=== PATIENT | female | born 1970 | race Caucasian/White ===

== ENCOUNTER 2017-10-24 11:01 | Emergency (ER) | payer BC, OTHER ==
--- OUTSIDE RECORDS SUMMARY | 2017-10-24 11:03 | XMS REPORT ---
:1970 [facility] [address] [place] [address] Care Team Providers Name Role Phone UNKNOWN, REFFERING Primary Care Provider Unavailable ROSA HALEY Unavailable Unavailable Problems This patient has no known problems. Allergies, Adverse Reactions, Alerts This patient has no known allergies or adverse reactions. Medications This patient has no known medications. Results Test Description Test Time Test Comments Text Results Atomic Results Result Comments [id number] 2016-09-14 17:22:00 Test Item Value Reference Range Comments Amphetamine (test code=AMPH) Negative Negative For diagnostic purposes only, positive results should always be assessedin conjunctionwith the patient's medical history,clinical examination and otherfindings.To fulfill legal requirements, a more specific alternate chemical methodmust be used inorder to obtain a Confirmed analytical result. GC/MS is the preferred confirmatory method. Barbiturates (test code=CHUCK) Negative Negative Benzodiazepine (test code=ALEXANDRA) Negative Negative Cocaine (test code=COCA) Negative Negative Methadone (test code=MTHD) Negative Negative Opiates (test code=OPIA) Negative Negative PCP (test code=PCP) Negative Negative Propoxyphene (test code=PROPOX) Negative Negative THC (test code=THC) Negative Negative Basic Metabolic [id number] 08:32:00 Test Item Value Reference Range Comments Sodium (test code=NA) 144 mmol/L 135-145 Potassium (test code=K) 3.3 mmol/L 3.5-5.1 Chloride (test code=CL) 105 mmol/L 98-105 Carbon Dioxide (test 21 mmol/L 22-29 code=CO2) Glucose (test code=GLU) 107 mg/dL 70-115 Blood Urea Nitrogen 15 mg/dL 6-20 (test code=BUN) Creatinine (test 0.6 mg/dL 0.5-0.9 code=CREAT) Calcium (test code=CA) 9.2 mg/dL 8.3-10.5 BUN/Creatinine Ratio 25.0 (test code=BCRATIO) Anion Gap (test 18 mmol/L 7-16 code=AGAP) Estimated GFR (test >60 mL/min/1.73m2 eGFR (estimated Glomerular code=GFR) Filtration Rate) is an estimated value,calculated from the patient's serum creatinine using the MDRD equation.It is NOT the patient's actual GFR. The eGFR provides a more clinicallyuseful measure of kidney disease than serum creatinine alone.This calculation takes sex and race into account, if the informationis provided. If the race is not provided, and the patient isAfrican-[place], multiply by 1.212. If sex is not provided, and thepatient is female, multiply by 0.742. Results for patients <18 years ofage have not been validated by the MDRD study and should be interpretedwith caution.eGFR Result Interpretation:eGFR > or=60 is in the Normal RangeeGFR < 60 may mean kidney diseaseeGFR < 15 may mean kidney failureRanges recommended by the National Kidney Foundation,http://nkdep.nih .gov RPR, [id number] 07:59:00 Test Item Value Reference Range Comments RPR (test code=RPR) Non-Reactive Non-Reactive [id number] 23:26:00 Test Item Value Reference Range Comments NT ProBnp (test code=PBNP) 681 pg/mL 0-124 Comprehensive Metabolic [id number] 23:26:00 Test Item Value Reference Range Comments Sodium (test code=NA) 144 mmol/L 135-145 Potassium (test code=K) 3.6 mmol/L 3.5-5.1 Chloride (test code=CL) 107 mmol/L 98-105 Carbon Dioxide (test 19 mmol/L 22-29 code=CO2) Glucose (test code=GLU) 93 mg/dL 70-115 Blood Urea Nitrogen 17 mg/dL 6-20 (test code=BUN) Creatinine (test 0.9 mg/dL 0.5-0.9 code=CREAT) Calcium (test code=CA) 10.1 mg/dL 8.3-10.5 Prot Total (test 6.9 g/dL 6.4-8.3 code=TP) Albumin (test code=ALB) 4.4 g/dL 3.5-5.2 A/G Ratio (test 1.8 Ratio code=AGRATIO) Globulin (test 2.5 2.9-3.1 code=GLOB) Bili Total (test 0.4 mg/dL 0.1-0.9 code=TBIL) Alk Phos (test 65 U/L 35-104 code=APHOS) AST (test code=AST) 31 U/L 1-32 ALT (test code=ALT) 24 U/L 1-33 BUN/Creatinine Ratio 18.9 (test code=BCRATIO) Anion Gap (test 18 mmol/L 7-16 code=AGAP) Estimated GFR (test >60 mL/min/1.73m2 eGFR (estimated Glomerular code=GFR) Filtration Rate) is an estimated value,calculated from the patient's serum creatinine using the MDRD equation.It is NOT the patient's actual GFR. The eGFR provides a more clinicallyuseful measure of kidney disease than serum creatinine alone.This calculation takes sex and race into account, if the informationis provided. If the race is not provided, and the patient isAfrican-[place], multiply by 1.212. If sex is not provided, and thepatient is female, multiply by 0.742. Results for patients <18 years ofage have not been validated by the MDRD study and should be interpretedwith caution.eGFR Result Interpretation:eGFR > or=60 is in the Normal RangeeGFR < 60 may mean kidney diseaseeGFR < 15 may mean kidney failureRanges recommended by the National Kidney Foundation,http://nkdep.nih .gov Lipid [id number] 23:26:00 Test Item Value Reference Range Comments Cholesterol (test 187 mg/dL 0-200 code=CHOL) Triglycerides (test 151 mg/dL 9-200 code=TRIG) HDL (test code=HDL) 42 mg/dL 50-60 Chol/HDL (test 4.5 Ratio 0.0-4.4 code=CHOLPHDL) LDL, Calculated (test 115 0-130 (NOTE)RISK OF HEART code=LDLC) DISEASEPublished by [place] Heart AssociationAnalyte Optimal Boderline Increased RiskCHOL <200 200-239 >240TRIG <150 150-199 >200HDL Male: >60 <40HDL Female: >60 <50LDL <100 130-159 >160LDL NEAR OPTIMAL IS 100-129 VLDL (test code=VLDL) 30 mg/dL 5-40 LDL/HDL (test code=LDLPHDL) 3 Thyroid Stimulating Hormone (TSH)2016-09-12 23:26:00 Test Item Value Reference Range Comments TSH (test code=TSH) 2.58 mIU/mL 0.270-4.200 BHCG, Serum, [id number] 22:06:00 Test Item Value Reference Range Comments Preg Qual [Se] (test code=BSHCG) Negative Negative Blood Gas+Lytes+Glu+Ca+Hgb+Hct+[id number] 14:17:00 Test Item Value Reference Range Comments pH, Blood Gas (test code=BGPH) 7.433 pH Units 7.35-7.45 pCO2 (test code=PCO2) 29.5 mm Hg 35-45 pO2 (test code=PO2) 73.9 mm Hg 80-100 Bicarbonate (test code=HCO3) 19.7 mmol/L 22.0-26.0 Base Excess (test code=BE) -3.6 mmol/L O2 Saturation (test code=O2SAT) 95.8 % 80.0-100.0 Sodium, Blood Gas (test code=BGNA) 147 mmol/L 135-145 Potassium, Blood Gas (test 3.5 mmol/L 3.5-4.5 code=BGK) Chloride, Blood Gas (test 113 mmol/L 98-105 code=BGCL) Calcium, Ionized, Blood Gas (test 1.28 mmol/L 1.00-1.50 code=BGCAI) Glucose, Blood Gas (test 104 mg/dL 75-115 code=BGGLU) tHB (test code=RTHB) 12.2 gm/dL 12.2-17.4 Hematocrit, Blood Gas (test 37.5 % 34.0-52.0 code=BGHCT) O2Hb (test code=RO2HB) 93 80-100 Carboxyhemoglobin (test 1.6 % 0.0-20.0 code=CARHGB) Methemoglobin (test code=METHGB) 1.1 % 0.0-20.0 FIO2 % (test code=FIO2) 21 % Patient Temperature (test 37.0 Degrees Celcius code=PTTEMP) Comment (test code=COMMENT) [email or web address] Puncture Site (test code=PUNSITE) Radial. R Drawing Tech ID (test christine code=DRAWTECH) iPAP (test code=IPAP) 0 cmH2O Respiratory Rate (test code=RESP 16 RATE) Lactic Acid, Blood Gas (test 0.9 mmol/L code=BGLA) Comprehensive Metabolic [id number] 20:02:00 Test Item Value Reference Range Comments Sodium (test code=NA) 142 mmol/L 135-145 Potassium (test code=K) 4.1 mmol/L 3.5-5.1 Chloride (test code=CL) 105 mmol/L 98-105 Carbon Dioxide (test 22 mmol/L 22-29 code=CO2) Glucose (test code=GLU) 100 mg/dL 70-115 Blood Urea Nitrogen 13 mg/dL 6-20 (test code=BUN) Creatinine (test 0.8 mg/dL 0.7-1.2 code=CREAT) Calcium (test code=CA) 10.2 mg/dL 8.3-10.5 Prot Total (test 7.0 g/dL 6.4-8.3 code=TP) Albumin (test code=ALB) 4.3 g/dL 3.5-5.2 A/G Ratio (test 1.6 Ratio code=AGRATIO) Globulin (test 2.7 2.9-3.1 code=GLOB) Bili Total (test 0.3 mg/dL 0.1-0.9 code=TBIL) Alk Phos (test 67 U/L 40-129 code=APHOS) AST (test code=AST) 23 U/L 1-40 ALT (test code=ALT) 26 U/L 1-41 BUN/Creatinine Ratio 16.3 (test code=BCRATIO) Anion Gap (test 15 mmol/L 7-16 code=AGAP) Estimated GFR (test >60 mL/min/1.73m2 eGFR (estimated Glomerular code=GFR) Filtration Rate) is an estimated value,calculated from the patient's serum creatinine using the MDRD equation.It is NOT the patient's actual GFR. The eGFR provides a more clinicallyuseful measure of kidney disease than serum creatinine alone.This calculation takes sex and race into account, if the informationis provided. If the race is not provided, and the patient isAfrican-[place], multiply by 1.212. If sex is not provided, and thepatient is female, multiply by 0.742. Results for patients <18 years ofage have not been validated by the MDRD study and should be interpretedwith caution.eGFR Result Interpretation:eGFR > or=60 is in the Normal RangeeGFR < 60 may mean kidney diseaseeGFR < 15 may mean kidney failureRanges recommended by the National Kidney Foundation,http://nkdep.nih .gov Alcohol/Ethanol, [id number] 19:57:00 Test Item Value Reference Range Comments Alcohol, Ethyl (test <0.01 g/dL 0.00-0.01 Intoxicated 0.080 g/dL or code=ETOH) more CBC with [id number] 19:45:00 Test Item Value Reference Range Comments WBC (test code=WBC) 8.6 K/cumm 4.4-10.5 RBC (test code=RBC) 3.61 M/cumm 4.10-5.70 Hemoglobin (test code=HGB) 10.9 gm/dL 13.4-17.4 Hematocrit (test code=HCT) 33.7 % 38.7-52.0 MCV (test code=MCV) 93.3 fL 80-100 MCH (test code=MCH) 30.1 pg 27.0-32.5 MCHC (test code=MCHC) 32.3 g/dL 32.0-37.5 RDW (test code=RDW) 16.8 % 11.5-14.5 Platelet Count (test code=PLTCT) 353 K/cumm 140-440 MPV (test code=MPV) 8.6 fL Diff Method (test code=DIFFM) Auto Neutrophil (test code=NEUT) 63.4 % 36-70 Lymphocyte (test code=LYMPH) 28.6 % 12-44 Monocyte (test code=MONO) 6.7 % 0-11 Eosinophil (test code=EOS) 0.9 % 0-7 Basophil (test code=BASO) 0.3 % 0-2 Neutro Abs (test code=ANEUT) 5.5 K/cumm 1.6-7.4 Lymph Abs (test code=ALYMPH) 2.5 K/cumm 0.5-4.6 Summers Abs (test code=AMONO) 0.6 K/cumm 0.0-1.2 Eos Abs (test code=AEOS) 0.08 K/cumm 0.00-0.74 Baso Abs (test code=ABASO) 0.0 K/cumm 0.00-0.21
[2017-10-24] MEDS ORDERED: ONDANSETRON 4 MG/2 ML VIAL ONE (11:41)
[2017-10-24] MEDS ORDERED: NA CHLORIDE 0.9% 1,000 ML ONE (11:41)
[2017-10-24] MEDS ORDERED: FENTANYL CITR 100 MCG/2 ML ONE (11:41)
[2017-10-24 12:07] LABS: Absolute Lymphocytes (CBC) 2.7 K/uL (0.7-4.9); Absolute Monocytes 0.5 K/uL (0.1-1.3); Absolute Neutrophil 4.1 K/uL (1.8-8.0); Basophils % 0.8 % (0-1.3); Eosinophils % 3.1 % (0-4.4); Hematocrit 34.4 % (36.0-45.0); Lymphocytes % 35.6 % (15.3-44.8); MCH 27.9 pg (27.0-35.0); MCV 82.4 fL (80-100); MPV 7.1 fL (7.6-11.3); Monocytes % 6.8 % (3.3-12.3); RBC Red Blood Cell Count 4.17 M/uL (3.86-4.86)
[2017-10-24 12:34] LABS: Barbiturates NEGATIVE (NEGATIVE); Benzodiazepines POSITIVE (NEGATIVE); Cocaine NEGATIVE (NEGATIVE); METHAMPHETAM NEGATIVE (NEGATIVE); Methadone NEGATIVE (NEGATIVE); Opiates NEGATIVE (NEGATIVE); Phencyclidine NEGATIVE (NEGATIVE); THC Cannibis NEGATIVE (NEGATIVE)
[2017-10-24 13:03] LABS: ALT/SGPT 20 U/L (12-78); AST/SGOT 16 U/L (15-37); Albumin 3.2 g/dL (3.4-5.0); Alkaline Phosphatase 130 U/L (45-117); BUN Blood Urea Nitrogen 5 mg/dL (7-18); Bicarbonate 30 mmol/L (21-32); Bilirubin Direct < 0.1 mg/dL (0-0.2); Bilirubin Total 0.2 mg/dL (0.2-1.0); Creatine Phosphokinase 68 U/L (26-192); Glucose Level 94 mg/dL (74-106); Lipase 58 U/L (73-393); Magnesium 2.3 mg/dL (1.8-2.4); NT PRO-BNP 183 pg/mL (<125); Protein, Total 6.7 g/dL (6.4-8.2); Sodium Level 139 mmol/L (136-145)
[2017-10-24 13:17] LABS: Alcohol Serum/Plasma < 3 mg/dL (<3)
[2017-10-24 13:40] LABS: Urine Glucose NEGATIVE (NEG); Urine Specific Gravity 1.015 (1.005-1.030)
[2017-10-24 13:41] LABS: Urine Blood 1+ (NEG); Urine Protein NEGATIVE (NEG); Urine pH 6.5 (5.0-7.0)
[2017-10-24 13:42] LABS: Protime INR 0.93
[2017-10-24] MEDS ORDERED: KETOROLAC 30 MG/ML INJ ONE (13:57)
--- NOTE | 2017-10-24 14:03 | RAD REPORT ---
EXAM DESCRIPTION: Nisha Single View10/24/2017 1:02 pm CLINICAL HISTORY: Chest pain COMPARISON: April 2017 FINDINGS: The lungs appear clear of acute infiltrate. The heart is borderline enlarged. Postsurgical changes involve the chest. IMPRESSION: No acute abnormalities displayed
--- NOTE | 2017-10-24 14:03 | RAD REPORT ---
EXAM DESCRIPTION: CT - Head C Spine Deuce [place] - 10/24/2017 1:41 pm CLINICAL HISTORY: Head and neck injury with chest and abdominal pain status post fall from a ladder 3 weeks ago. Head and neck pain . TECHNIQUE: Computed axial tomography of the head and cervical spine was obtained Computed axial tomography of the chest, abdomen and pelvis was obtained. 100 cc Isovue-300 was given intravenously coronal and sagittal reconstruction was performed. All CT scans are performed using dose optimization technique as appropriate and may include automated exposure control or mA/KV adjustment according to patient size. COMPARISON: CT head and neck 2013 FINDINGS: An intracranial bleed is not seen. The ventricles are normal in caliber. An extra-axial fl uid collection is not noted. The visualized sinuses and mastoids are clear A cervical fracture is not seen. No dislocation is seen. A mediastinal hematoma is not noted. A pleural effusion is not present. A lung contusion is not seen. The liver, spleen, pancreas, adrenals, kidneys and bladder appear unremarkable. The appendix is normal. There is no evidence of diverticulitis. Mild stranding is present within the anterior subcutaneous tissues of the lower pelvis IMPRESSION: 1. No acute intracranial abnormality is seen 2. A cervical fracture is not visualized. If the patient continues have symptoms to suggest intracran ial/spinal cord pathology then MRI would be recommended. 3. No traumatic injury involving the chest or abdomen is seen. Mild stranding within the anterior sub cutaneous tissues of the lower pelvis could represent a mild contusion
[2017-10-24] MEDS ORDERED: CYCLOBENZAPRINE 10 MG TAB ONE (14:07)
--- NOTE | 2017-10-24 14:22 | ER ---
Nurse's Notes [facility] Name: Anahi Iqbal Age: 47 yrs Sex: Female : 1970 Arrival Date: 10/24/2017 Time: 11:03 Bed 7 Private MD: Diagnosis: Other chest pain-Left Lateral;Other abdominal pain-Left Lateral Presentation: 10/24 11:03 Presenting complaint: Patient states: L lateral chest wall pain that began after ss falling 8 feet off of a ladder 3 weeks ago. Pt reports she has had the pain, but this morning when standing up the pain suddenly got much worse, and was inhibiting her breathing. Transition of care: patient was not received from another setting of care. Onset of symptoms was October 03, 2017. Risk Assessment: Do you want to hurt yourself or someone else? Patient reports no desire to harm self or others. Initial Sepsis Screen: Does the patient meet any 2 criteria? No. Patient's initial sepsis screen is negative. Does the patient have a suspected source of infection? No. Patient's initial sepsis screen is negative. Care prior to arrival: Medication(s) given: Fentanyl 50 mcg IVP IV initiated. 20 GA, in the left hand. 11:03 Method Of Arrival: EMS: [facility] 11:03 Acuity: NIRAJ 3 ss PROJECT ASST: 11:16 LMP N/A - Hysterectomy ss Historical: - Allergies: 11:17 Sulfa (Sulfonamide Antibiotics); ss - PMHx: 11:16 barnard parkinson white syndrome; ss - PSHx: 11:16 Tonsillectomy; ; Cardiac Ablasion; Hysterectomy; ss - Immunization history:: Adult Immunizations up to date. - Social history:: Smoking status: Patient uses tobacco products, smokes two packs cigarettes per day. - Ebola Screening: : Patient denies exposure to infectious person Patient denies travel to an Ebola-affected area in the 21 days before illness onset. Screenin:45 Abuse screen: Denies threats or abuse. Denies injuries from another. Nutritional sv screening: No deficits noted. Tuberculosis screening: No symptoms or risk factors identified. Fall Risk Fall in past 12 months (25 points). No secondary diagnosis (0 pts). IV access (20 points). Ambulatory Aid- None/Bed Rest/Nurse Assist (0 pts). Gait- Normal/Bed Rest/Wheelchair (0 pts) Mental Status- Oriented to own ability (0 pts). Total Moreno Fall Scale indicates Low Risk Score (25-44 pts). Fall prevention measures have been instituted. Side Rails Up X 2 Placed close to Nursing Station Frequent Obs/Assesments occuring Family Present and informed to notify staff if they need to leave bedside As available Patient and Family Educated on Fall Prevention Program and strategies. Assessment: 11:40 General: Appears uncomfortable, obese, Behavior is cooperative, anxious, restless. sv Pain: Complains of pain in left lateral anterior chest Pain does not radiate. Pain currently is 10 out of 10 on a pain scale. Pain began originally 3 weeks ago but got worse today Is continuous, Aggravated by increased activity, breathing. Neuro: Level of Consciousness is awake, alert, obeys commands, Oriented to person, place, time, situation, Moves all extremities. Speech is normal. Cardiovascular: Patient's skin is warm and dry. Pulses are 3+ in right radial artery and left radial artery. Respiratory: Respiratory effort is shallow, Respiratory pattern is tachypnea. Derm: Skin is normal. 12:30 Reassessment: Patient appears in no apparent distress at this time. No changes from hb previously documented assessment. Patient and/or family updated on plan of care and expected duration. Pain level reassessed. Patient is alert, oriented x 3, equal unlabored respirations, skin warm/dry/pink. 13:57 Reassessment: Patient appears in no apparent distress at this time. Patient and/or sv family updated on plan of care and expected duration. Pain level reassessed. Patient is alert, oriented x 3, equal unlabored respirations, skin warm/dry/pink. Pain: Pain currently is 10 out of 10 on a pain scale. 14:44 Reassessment: Pt refused IS d/t having them at home already. sv 14:54 Reassessment: Patient and/or family updated on plan of care and expected duration. Pain sv level reassessed. Patient is alert, oriented x 3, equal unlabored respirations, skin warm/dry/pink. Vital Signs: 11:16 BP 137 / 77; Pulse 89; Resp 22; Temp 98.3(TE); Pulse Ox 96% on R/A; Weight 104.78 kg; ss Height 5 ft. 6 in. (167.64 cm); Pain 10/10; 11:50 Pulse Ox 90% on R/A; sv 12:08 BP 107 / 70; Pulse 88; Resp 24; Pulse Ox 100% on 26% Venturi mask; sv 12:54 BP 127 / 76; Pulse 77; Resp 17; Pulse Ox 100% on R/A; hb 13:57 BP 145 / 98; Pulse 74; Resp 15; Pulse Ox 100% on 26% Venturi mask; sv 14:45 BP 107 / 59; Pulse 79; Resp 22; Pulse Ox 96% ; sv 11:16 Body Mass Index 37.28 (104.78 kg, 167.64 cm) ss 11:50 Pt placed on 26% venturi mask. O2 sat up to 97%. sv ED Course: 11:03 Patient arrived in ED. ss 11:03 Maintain EMS IV. Dressing intact. Good blood return noted. Site clean \T\ dry. Gauge \T\ sv site: 20G left hand. 11:05 Hemal Mayfield PA is PHCP. cp 11:05 Hemal Jane MD is Attending Physician. cp 11:15 Triage completed. ss 11:16 Arm band placed on right wrist. ss 11:45 Patient has correct armband on for positive identification. Bed in low position. Call sv light in reach. Side rails up X2. Adult w/ patient. Pulse ox on. NIBP on. Door closed. Warm blanket given. Head of bed elevated. 11:49 Dayan Lind, RN is Primary Nurse. sv 11:55 Initial lab(s) drawn, by ny, sent to lab. T\T\S collected, blood band applied to patient. sv 12:13 Oxygen administration via Venturi mask \T\ 3L/min - 26%. sv 12:25 insurance premium auditor on. sv 12:30 Inserted saline lock: 22 gauge in right forearm, using aseptic technique. ,using sv aseptic technique. diffusics Flushed right forearm with 5 ml normal saline. 12:33 EKG done, by mechanical engineering technologist. reviewed by Hemal GENAO. at1 12:40 Radiology exam delayed due to lab results not completed at this time. (BUN/Creatinine). nj 12:50 X-ray completed. Portable x-ray completed in exam room. Patient tolerated procedure jb2 well. 13:02 XRAY Chest (1 view) In Process Unspecified. EDMS 13:[address] sj 13:42 CT Traumagram (Head C Spine CAP W Con) In Process Unspecified. EDMS 14:21 Sebastien Santana MD is Referral Physician. cp 14:54 No provider procedures requiring assistance completed. IV discontinued, intact, sv bleeding controlled, No redness/swelling at site. Pressure dressing applied. Administered Medications: 11:36 CANCELLED (Physician Discretion): Dilaudid 1 mg IVP once cp 11:45 Drug: NS 0.9% 1000 ml Route: IV; Rate: 1 bolus; Site: left hand; sv 11:45 Drug: Zofran 4 mg Route: IVP; Site: left hand; sv 12:10 Follow up: Response: No adverse reaction sv 11:47 Drug: fentaNYL (PF) 50 mcg Route: IVP; Site: left hand; sv 12:10 Follow up: Response: No adverse reaction sv 13:03 Drug: fentaNYL (PF) 50 mcg Route: IVP; Site: left wrist; hb 13:15 Follow up: Response: No adverse reaction sv 13:56 Drug: TORadol 30 mg Route: IVP; Site: right forearm; sv 14:29 Follow up: Response: No adverse reaction sv 14:11 Drug: Flexeril 10 mg Route: PO; hb 14:29 Follow up: Response: No adverse reaction sv 14:28 CANCELLED (Duplicate Order): Zofran 4 mg IVP once; over 2 minutes sv Outcome: 14:22 Discharge ordered by MD. cp 14:54 Discharged to home via wheelchair, with family. sv 14:54 Condition: stable 14:54 Discharge instructions given to patient, family, Instructed on discharge instructions, follow up and referral plans. medication usage, Demonstrated understanding of instructions, follow-up care, medications, Prescriptions given X 2. 14:55 Patient left the ED. sv Signatures: Dispatcher [employer] EDAK Dayan Lind RN RN sv Buechter, Jesse jb2 Jones, Susan sj Smirch, Shelby, RN RN ss gonzales, Amanda, plate cutter EKG Tat1 Hemal Mayfield PA PA cp Baxter, Heather, RN RN hb Jordan, Nathan nj Corrections: (The following items were deleted from the chart) 11:21 11:16 Allergies: Codeine; ss ss 11:21 11:16 Allergies: PENICILLINS; ss ss 12:14 12:08 BP 107 / 70; Pulse 88bpm; Resp 24bpm; Pulse Ox 100% 02 28% Venturi mask; sv sv 12:14 11:50 Pulse Ox 90% RA; Pt placed on 28% venturi mask. O2 sat up to 97%. ; sv sv
--- NOTE | 2017-10-24 14:22 | EDPHYS ---
Physician Documentation [facility] Unit Name: Anahi Iqbal Age: 47 yrs Sex: Female : 1970 Arrival Date: 10/24/2017 Time: 11:03 Bed 7 Private MD: ED Physician Hemal Jane HPI: 10/24 12:15 This 47 yrs old Female presents to ER via EMS with complaints of Chest Wall cp Pain. 12:15 The patient or guardian reports chest pain that is located primarily in the left cp lateral posterior chest and left lateral anterior chest. 12:15 Mother reports patient fell from ladder about 3 weeks ago, was knocked unconscious and cp went to another ED. CT was not done. Patient seemed to be improving until today when pain worsened. HR REPRESENTATIVE: 11:16 LMP N/A - Hysterectomy ss Historical: - Allergies: 11:17 Sulfa (Sulfonamide Antibiotics); ss - PMHx: 11:16 barnard parkinson white syndrome; ss - PSHx: 11:16 Tonsillectomy; ; Cardiac Ablasion; Hysterectomy; ss - Immunization history:: Adult Immunizations up to date. - Social history:: Smoking status: Patient uses tobacco products, smokes two packs cigarettes per day. - Ebola Screening: : Patient denies exposure to infectious person Patient denies travel to an Ebola-affected area in the 21 days before illness onset. ROS: 12:20 Constitutional: Negative for body aches, chills, fever, poor PO intake. cp 12:20 Eyes: Negative for injury, pain, redness, and discharge. cp 12:20 Cardiovascular: Positive for chest pain, of the left lateral anterior chest and left lateral posterior chest, Negative for edema, palpitations. 12:20 Respiratory: Negative for cough, shortness of breath, wheezing. 12:20 Abdomen/GI: Negative for abdominal pain, nausea, vomiting, and diarrhea, constipation, black/tarry stool, rectal bleeding. 12:20 Back: Positive for radiated pain. 12:20 : Negative for urinary symptoms, vaginal bleeding, vaginal discharge. 12:20 Skin: Negative for cellulitis, rash. 12:20 Neuro: Negative for altered mental status, headache, weakness. 12:20 All other systems are negative. Exam: 12:12 ECG was reviewed by the Attending Physician. cp 12:25 Constitutional: The patient appears alert, awake, non-diaphoretic, non-toxic, well cp developed, well nourished, in obvious pain, uncomfortable. 12:25 Head/Face: Normocephalic, atraumatic. Eyes: Pupils equal round and reactive to light, cp extra-ocular motions intact. Lids and lashes normal. Conjunctiva and sclera are non-icteric and not injected. Cornea within normal limits. Periorbital areas with no swelling, redness, or edema. ENT: Nares patent. No nasal discharge, no septal abnormalities noted. Tympanic membranes are normal and external auditory canals are clear. Oropharynx with no redness, swelling, or masses, exudates, or evidence of obstruction, uvula midline. Mucous membranes moist. Neck: Trachea midline, no thyromegaly or masses palpated, and no cervical lymphadenopathy. Supple, full range of motion without nuchal rigidity, or vertebral point tenderness. No Meningismus. 12:25 Chest/axilla: Inspection: normal, Palpation: crepitus, is not appreciated, tenderness, that is severe, of the left lateral posterior chest and left lateral anterior chest, that partially reproduces the patient's complaints. 12:25 Cardiovascular: Rate: normal, Rhythm: regular, Pulses: Pulses are 2+ in right radial artery and left radial artery. Heart sounds: murmur, not appreciated, rub, not appreciated, gallop, not appreciated, Edema: is not appreciated, JVD: is not appreciated. 12:25 Respiratory: the patient does not display signs of respiratory distress, Respirations: labored breathing, is not present, asymmetrical chest movement, is not seen, accessory muscle usage, is absent, shallow respirations, that is mild, splinting, is not noted, tachypnea, is not appreciated, Breath sounds: are clear throughout, no decreased breath sounds, no stridor, no wheezing. 12:25 Abdomen/GI: Inspection: obese Bowel sounds: active, all quadrants, Palpation: soft, in all quadrants, severe abdominal tenderness, in the posterior aspect of left lateral abdomen and anterior aspect of left lateral abdomen, rebound tenderness, is not appreciated, voluntary guarding, is elicited in the posterior aspect of left lateral abdomen and anterior aspect of left lateral abdomen, involuntary guarding, is not appreciated. 12:25 Back: vertebral tenderness, is not appreciated. 12:25 Musculoskeletal/extremity: Exam is negative for decreased range of motion, deformity, edema, injury. 12:25 Skin: cellulitis, is not appreciated, no rash present. 12:25 Neuro: Orientation: to person, place \T\ time. Mentation: lucid, able to follow commands, Cerebellar function: is grossly normal, Motor: moves all fours, strength is normal, Sensation: no obvious gross deficits. Vital Signs: 11:16 BP 137 / 77; Pulse 89; Resp 22; Temp 98.3(TE); Pulse Ox 96% on R/A; Weight 104.78 kg; ss Height 5 ft. 6 in. (167.64 cm); Pain 10/10; 11:50 Pulse Ox 90% on R/A; sv 12:08 BP 107 / 70; Pulse 88; Resp 24; Pulse Ox 100% on 26% Venturi mask; sv 12:54 BP 127 / 76; Pulse 77; Resp 17; Pulse Ox 100% on R/A; hb 13:57 BP 145 / 98; Pulse 74; Resp 15; Pulse Ox 100% on 26% Venturi mask; sv 14:45 BP 107 / 59; Pulse 79; Resp 22; Pulse Ox 96% ; sv 11:16 Body Mass Index 37.28 (104.78 kg, 167.64 cm) ss 11:50 Pt placed on 26% venturi mask. O2 sat up to 97%. sv MDM: 11:05 Patient medically screened. cp 12:00 Differential diagnosis: acute pericarditis, chest wall pain, costochondritis, cp pericarditis, pleurisy, pneumonia, pneumothorax, pulmonary embolus, stable angina, unstable angina. 14:20 Data reviewed: vital signs, nurses notes, lab test result(s), radiologic studies, CT cp scan, and as a result, I will discharge patient. 14:20 ED course: VSS. Radiology results negative for acute trauma. Will discharge to home for cp continued monitoring. 10/24 11:18 Order name: Basic Metabolic Panel; Complete Time: 13:54 [facility] 10/24 14:07 Interpretation: Normal except: BUN 5; GFR 67; CA 8.1. cp 10/24 11:18 Order name: CBC with Diff; Complete Time: 12:37 [facility] 10/24 12:37 Interpretation: Normal except: HGB 11.7; HCT 34.4; MCV 82.4; MCH 27.9; RDW 17.4; MPV cp 7.1. 10/24 11:18 Order name: Ckmb; Complete Time: 13:54 [facility] 10/24 11:18 Order name: CPK; Complete Time: 13:54 [facility] 10/24 11:18 Order name: LFT's; Complete Time: 13:54 [facility] 10/24 13:55 Interpretation: Normal except: ALK 130; ALB 3.2; A/G 0.9. 10/24 11:18 Order name: Magnesium; Complete Time: 13:54 [facility] 10/24 11:18 Order name: NT PRO-BNP; Complete Time: 13:54 [facility] 10/24 11:18 Order name: PT-INR; Complete Time: 13:54 [facility] 10/24 11:18 Order name: Ptt, Activated; Complete Time: 13:54 [facility] 10/24 11:18 Order name: Troponin (emerg Dept Use Only); Complete Time: 12:37 [facility] 10/24 11:18 Order name: Lipase; Complete Time: 13:54 [facility] 10/24 14:07 Interpretation: LIP 58; Reviewed. 10/24 11:18 Order name: Acetaminophen; Complete Time: 13:54 [facility] 10/24 11:18 Order name: ETOH Level; Complete Time: 13:54 [facility] 10/24 11:18 Order name: Salicylate; Complete Time: 13:54 [facility] 10/24 11:18 Order name: XRAY Chest (1 view); Complete Time: 14:06 [facility] 10/24 11:18 Order name: CT Traumagram (Head C Spine CAP W Con); Complete Time: 14:06 [facility] 10/24 11:18 Order name: Urine Drug Screen; Complete Time: 12:37 [facility] 10/24 12:48 Interpretation: Normal except: BZO POSITIVE. 10/24 11:19 Order name: Urine Culture [facility] 10/24 11:19 Order name: Type And Screen; Complete Time: 13:54 [facility] 10/24 12:18 Order name: Urine Dipstick--Ancillary (enter results); Complete Time: 13:54 10/24 12:18 Order name: Urine --Ancillary (enter results); Complete Time: 13:54 10/24 14:33 Order name: INCENTIVE SPIROMETRY sv 10/24 11:18 Order name: EKG; Complete Time: 11:19 [facility] 10/24 11:18 Order name: Cardiac monitoring; Complete Time: 12:27 [facility] 10/24 11:18 Order name: EKG - Nurse/Tech; Complete Time: 12:10 [facility] 10/24 11:18 Order name: IV Saline Lock; Complete Time: 12: [facility] 10/24 11:18 Order name: Labs collected and sent; Complete Time: 12: [facility] 10/24 11:18 Order name: O2 Per Protocol; Complete Time: 12: [facility] 10/24 11:18 Order name: O2 Sat Monitoring; Complete Time: 12: [facility] 10/24 11:18 Order name: Urine Dipstick-Ancillary (obtain specimen); Complete Time: 12:11 [facility] EC:12 Rate is 87 beats/min. Rhythm is regular. IA interval is normal. QRS interval is normal. cp QT interval is prolonged at 404 msec. Interpreted by me. Reviewed by me. Administered Medications: 11:36 CANCELLED (Physician Discretion): Dilaudid 1 mg IVP once cp 11:45 Drug: NS 0.9% 1000 ml Route: IV; Rate: 1 bolus; Site: left hand; sv 11:45 Drug: Zofran 4 mg Route: IVP; Site: left hand; sv 12:10 Follow up: Response: No adverse reaction sv 11:47 Drug: fentaNYL (PF) 50 mcg Route: IVP; Site: left hand; sv 12:10 Follow up: Response: No adverse reaction sv 13:03 Drug: fentaNYL (PF) 50 mcg Route: IVP; Site: left wrist; hb 13:15 Follow up: Response: No adverse reaction sv 13:56 Drug: TORadol 30 mg Route: IVP; Site: right forearm; sv 14:29 Follow up: Response: No adverse reaction sv 14:11 Drug: Flexeril 10 mg Route: PO; hb 14:29 Follow up: Response: No adverse reaction sv 14:28 CANCELLED (Duplicate Order): Zofran 4 mg IVP once; over 2 minutes sv Disposition: 15:12 Co-signature as Attending Physician, Hemal Jane MD I agree with the assessment and [facility] plan of care. Disposition: 10/24/17 14:22 Discharged to Home. Impression: Other chest pain - Left Lateral, Other abdominal pain - Left Lateral. - Condition is Stable. - Discharge Instructions: Abdominal Pain, Adult, Chest Wall Pain. - Prescriptions for Diclofenac Sodium 75 mg Oral Tablet, Delayed Release (E.C.) - take 1 tablet by ORAL route 2 times per day; 20 tablet. orphenadrine citrate 100 mg Oral Tablet Sustained Release - take 1 tablet by ORAL route 2 times per day As needed no driving while taking medication; 20 tablet. - Medication Reconciliation Form, Thank You Letter, Antibiotic Education, Prescription Opioid Use form. - Follow up: Sebastien Santana MD; When: 2 - 3 days; Reason: Recheck today's complaints. - Problem is new. - Symptoms have improved. Signatures: Dispatcher [employer] EDMS Dayan Lind RN RN sv Hemal Jane MD MD cha Smirch, Shelby, RN RN ss Hemal Mayfield PA PA Tere Simpson RN RN Corrections: (The following items were deleted from the chart) 11:21 11:16 Allergies: Codeine; ss ss 11:21 11:16 Allergies: PENICILLINS; ss ss 11:36 11:23 Dilaudid 1 mg IVP once ordered. cp cp 14:07 13:54 Normal except: BUN 5; GFR 67. cp cp 14:28 11:25 Zofran 4 mg IVP once; over 2 minutes ordered. shayla sv 14:28 14:28 Zofran 4 mg IVP once; over 2 minutes ordered. sv sv 14:55 14:22 10/24/2017 14:22 Discharged to Home. Impression: Other chest pain - Left Lateral; sv Other abdominal pain - Left Lateral. Condition is Stable. Forms are Medication Reconciliation Form, Thank You Letter, Antibiotic Education, Prescription Opioid Use. Follow up: Sebastien Santana; When: 2 - 3 days; Reason: Recheck today's complaints. Problem is new. Symptoms have improved. cp
--- NOTE | 2017-10-24 14:34 | EKG ---
Test Date: 2017-10-24 Test Time: 12:08:30 [employer] [facility]: [facility] MEASUREMENT RESULTS: Intervals: Rate: 87 NH: 132 QRSD: 96 QT: 404 QTc: 486 [place]: P: 49 NH: 132 QRS: 67 T: 71 INTERPRETIVE STATEMENTS: Normal sinus rhythm ST & T wave abnormality, consider anterior ischemia Prolonged QT Abnormal ECG Compared to ECG 11/21/2016 12:26:26 Possible ischemia now present ST (T wave) deviation still present Electronically Signed On 10-24-17 14:33:35 CDT by Ede Kim
== END 2017-10-24 14:55 | disposition home or self-care (01) ==
LOC: ER 11:01
DX: R10.9 Unspecified abdominal pain (principal); F17.210 Nicotine dependence, cigarettes, uncomplicated; Z88.2 Allergy status to sulfonamides
CPT/HCPCS: 36415; 70450; 71045; 71260; 72125; 74177; 80048; 80076; 80307; 80320; 80329; 81003; 81025; 82550; 82553; 83690; 83735; 83880; 84484; 85025; 85610; 85730; 86850; 86900; 86901; 87086; 87088; 93005; 99285; J2405; J3010; J7030; Q9967